=== PATIENT | male | born 1950 | race Caucasian/White ===

== ENCOUNTER 2018-04-05 06:00 | Day surgery (SDC) | payer MEDICARE, MEDICAID ==
[~2018-04-05] VITALS: Ht 182.9 cm; Wt 126.5 kg
[~2018-04-05 06:00] MED LIST: ATORVASTATIN CA20 MG PO; LISINOPRIL-HCT1 EAC1 PO; TYLENOL WITH C1 EACH PO
[2018-04-05] MEDS ORDERED: NAPROSYN500 MG PO (06:26)
[2018-04-05] MEDS ORDERED: HEARTBURN RELIE75 M1 PO (06:26)
[2018-04-05] MEDS ORDERED: CORTISONE ACETA25 MG PO (06:28)
[2018-04-05] MEDS ORDERED: ASPIR 8181 MG PO (06:29)
--- NOTE | 2018-04-05 08:22 | NUR ---
04/05/18 0822 Siobhan Pierce 0818-PATIENT ARRIVED TO PACU ON 3L NC O2 SAT 95% PATIENT REACTIVE TO VOICE OPENING EYES DENIES PAIN OR NAUSEA. VERY DROWSY BACK TO SLEEP. RR EVEN.
--- NOTE | 2018-04-05 11:23 | OR ---
[facility] [address], [place] [address] Signed DATE OF OPERATION: 04/05/2018 SURGEON: Dax Oliveira MD COLONOSCOPY REPORT PREOPERATIVE DIAGNOSIS: Personal history of colonic polyps in 2007. POSTOPERATIVE DIAGNOSIS: Moderate sigmoid diverticulosis. PROCEDURE: Colonoscopy without biopsy. ESTIMATED BLOOD LOSS: None. INDICATIONS: Mane is a 68-year-old gentleman, who was asked to see me for followup colonoscopy. He explained that he underwent a colonoscopy with polyps removed in 2007 while working in [place]. The time got away from him before he noted he was at another job and when he reestablished with a new primary care provider he was asked to come see me for his followup colonoscopy. He said there is no family history of colon cancer or polyps. He has no lower GI complaints. I met with Mane in the office and I gave him a [employer] brochure on endoscopy and we reviewed the idea that colonic polyps can grow and become cancers in that regard we need to see him every 5 years. We also had reviewed the written instructions of the bowel prep. We also reviewed the need for IV conscious sedation. He understands there is risk to the procedure including, but not limited to gas bloating, crampy abdominal pain, bleeding, perforation, requiring surgery, and missed diagnosis. He had expressed understanding and wished to proceed. PROCEDURE NOTE: Mane was taken into our endoscopy suite and placed in the left lateral decubitus position. He was given IV sedation with 150 mcg of fentanyl and 8 mg of Versed. Also, because of his daily need for oral cortisone, we gave him 60 mg of Solu-Medrol IV x1 before the procedure started. He understands he will go ahead and take his cortisone later today after he gets home. After this, a digital rectal exam was performed and this was unremarkable. The adult colonoscope was introduced and advanced all around into the cecum under direct visualization of camera without difficulty. He had a couple Electronically Signed By: DAX OLIVEIRA MD 04/05/18 1123 PATIENT NAME: MANE BRIGGS OPERATIVE REPORT DATE OF : 46 REPORT #: [id number] PHYSICIAN: DAX OLIVEIRA MD PCP: COURTNEY DALY MD REPORT IS CONFIDENTIAL AND NOT TO BE RELEASED WITHOUT AUTHORIZATION [facility] [address], [place] [address] Signed areas of pasty particulate stool matter that I could irrigate and suction out completely. Nevertheless, we found no pathology in the colon except for the diverticulosis. They are moderate in size, moderate in number, and scattered about in the sigmoid colon. The rectum was unremarkable. Upon retroflexion of the scope, there was no additional pathology noted above the anal canal. After this, the gas was suctioned out and the colonoscope removed. Mane tolerated the procedure quite well. RECOMMENDATIONS: I will see Mane in 5 years for repeat colonoscopy due to his personal history of colonic polyps. Dax Oliveira MD ALB/MODL /[id number] cc: MD Dax Bello MD Copies: COURTNEY DALY MD, ANDREW L MD ~ Electronically Signed By: DAX OLIVEIRA MD 04/05/18 1123 PATIENT NAME: MANE BRIGGS OPERATIVE REPORT DATE OF : 46 REPORT #: [id number] PHYSICIAN: DAX OLIVEIRA MD PCP: COURTNEY DALY MD REPORT IS CONFIDENTIAL AND NOT TO BE RELEASED WITHOUT AUTHORIZATION
== END 2018-04-05 09:12 | disposition home or self-care (01) ==
LOC: OPS 06:00 → DS 06:00 → OPS 06:45
PROVIDERS: Colon & Rectal Surgery
PROC: 0DJD8ZZ Inspection of Lower Intestinal Tract, Via Natural or Artificial Opening Endoscopic (ICD-10-PCS; principal; 2018-04-05 06:45)
DX: Z12.11 Encounter for screening for malignant neoplasm of colon (principal); K57.30 Diverticulosis of large intestine without perforation or abscess without bleeding; E78.5 Hyperlipidemia, unspecified; M19.90 Unspecified osteoarthritis, unspecified site; I10 Essential (primary) hypertension; Z86.010 Personal history of colon polyps; Z86.73 Personal history of transient ischemic attack (TIA), and cerebral infarction without residual deficits; Z98.890 Other specified postprocedural states; Z79.82 Long term (current) use of aspirin; Z79.899 Other long term (current) drug therapy; Z79.1 Long term (current) use of non-steroidal anti-inflammatories (NSAID)
CPT/HCPCS: 99153; G0500; J2250; J3010; J7120

== ENCOUNTER 2020-04-05 13:27 | Observation (INO) | payer MEDICARE, MEDICAID ==
[~2020-04-05] VITALS: Ht 182.9 cm; Wt 126.5 kg
[~2020-04-05 13:27] MED LIST changes: +ASPIR 8181 MG PO; +CORTISONE ACETA25 MG PO; +HEARTBURN RELIE75 M1 PO; +NAPROSYN500 MG PO
--- NOTE | 2020-04-06 07:52 | EKG ---
[facility] [address] [facility] [place] [address] Signed Normal sinus rhythm with sinus arrhythmia Prolonged QT Abnormal ECG No previous ECGs available Confirmed by LORI MARC MD ([id number]) on 04/06/2020 7:52:33 AM Electronically Signed By: LORI MARC MD 04/06/20 0752 PATIENT NAME: MANE BRIGGS NIKHIL Electrocardiogram DATE OF : 46 PHYSICIAN: LORI MARC MD REPORT #: [id number] REPORT IS CONFIDENTIAL AND NOT TO BE RELEASED WITHOUT AUTHORIZATION
[2020-04-06] MEDS ORDERED: DULOXETINE HCL20 MG PO (09:33)
[2020-04-06] MEDS ORDERED: DICLOFENAC SOD100 G1 TOP (10:30)
[2020-04-08] MEDS ORDERED: ASPIRIN325 MG PO (09:47)
== END 2020-04-08 10:55 | disposition home or self-care (01) ==
LOC: ED 13:27 → MS 13:28
PROVIDERS: ADMIT Internal Medicine
DX: G45.9 Transient cerebral ischemic attack, unspecified (principal); I10 Essential (primary) hypertension; Z79.899 Other long term (current) drug therapy; Z79.82 Long term (current) use of aspirin; W18.30XA Fall on same level, unspecified, initial encounter; Y92.009 Unspecified place in unspecified non-institutional (private) residence as the place of occurrence of the external cause
CPT/HCPCS: 36415; 70450; 70496; 70498; 70551; 71045; 80048; 80053; 80061; 81001; 83735; 85025; 85610; 85730; 93005; 93010; 96105; 96361; 96372; 96375; 97112; 97116; 97163; 97165; 99285-25; C9803; G0378; J1650; J2405; J2550; J7030; Q9967; U0002

== ENCOUNTER 2023-06-23 13:03 | Emergency (ER) | payer MEDICARE, OTHER ==
[~2023-06-23] VITALS: Ht 185.4 cm; Wt 119.9 kg
--- OUTSIDE RECORDS SUMMARY | ~2023-06-23 | XMS | Continuity of Care Document ---
Demographics + + + | Address | [address] | | | [place] [address] | + + + | Preferred Language | Unknown | + + + | Marital Status | Never | + + + | Mormonism Affiliation | Unknown | + + + | Race | White | + + + | Ethnic Group | Unknown | + + + Author + + + | Author | [facility] | + + + | Organization | [facility] | + + + | Address | [address] | | | [place] [address] | + + + | Phone | | + + + Care Team Providers + + + + | Care Hairspring Fabrication Supervisor Name | Role | Phone | + + + + Unavailable | Unavailable | + + + + Allergies and Intolerances + + + + + + | date | description | facility | reaction | severity | + + + + + + | (no date) | No Known Drug | [facility] | (no reaction) | (no severity) | | | Allergies | | | | + + + + + + Encounters No information. Functional Status No information. Immunizations No information. Medications No information. Problems + + + + | date | description | facility | + + + + | 2023-03-29 09:35 | TRANSIENT CEREBRAL | [facility] | | | ISCHEMIC ATTACK, | | | | UNSPECIFIED | | + + + + | 2023-03-29 09:35 | SEBACEOUS CYST | [facility] | + + + + | 2023-04-13 19:53 | TRANSIENT CEREBRAL | [facility] | | | ISCHEMIC ATTACK, UNSP | | + + + + | 2023-04-13 19:53 | TRANSIENT CEREBRAL | [facility] | | | ISCHEMIC ATTACK, | | | | UNSPECIFIED | | + + + + | 2023-04-13 20:30 | TRANSIENT CEREBRAL | [facility] | | | ISCHEMIC ATTACK, UNSP | | + + + + Procedures No information. Results/Labs No information. Social History No information. Vital Signs No information."
--- OUTSIDE RECORDS SUMMARY | ~2023-06-23 | XMS | Continuity of Care Document ---
Demographics + + + | Address | [address] | | | [place] [address] | + + + | Preferred Language | Unknown | + + + | Marital Status | Never | + + + | Caodaism Affiliation | Unknown | + + + | Race | White | + + + | Ethnic Group | Unknown | + + + Author + + + | Author | [facility] | + + + | Organization | [facility] | + + + | Address | [address] | | | [place] [address] | + + + | Phone | | + + + Care Team Providers + + + + | Care Spot Checker Name | Role | Phone | + [...]
[~2023-06-23 13:03] MED LIST changes: +ASPIRIN325 MG PO; +DICLOFENAC SOD100 G1 TOP; +DULOXETINE HCL20 MG PO
[2023-06-23 13:16] LABS: BASOPHILS 0.4 % (0-2); EOSINOPHILS 1.1 % (0-6); HEMATOCRIT 40.9 % (35.0-50.0); HEMOGLOBIN 13.6 g/dL (12.0-18.0); LYMPHOCYTES 17.5 % (24-44); MCH 32.9 (27-36); MCHC 33.3 g/dl (30-36); MCV 98.6 fl (81-99); MONOCYTES 9.1 % (0-12); NEUTROPHILS 71.9 % (39-80); PLATELET COUNT 222 K/uL (140-440); RBC 4.15 M/ul (4.3-5.7); RDW 13.7 (10.5-15.0)
[2023-06-23 13:27] LABS: ALBUMIN 3.9 g/dL (3.4-5.0); ALBUMIN/GLOBULIN RATIO 1.18 (1.1-2.4); ANION GAP 13.8 (7-21); BILIRUBIN, TOTAL 0.5 ng/dL (0.2-1.0); BUN/CREATININE RATIO 17.54 (6.0-28.6); CALCIUM 9.4 mg/dL (8.5-10.1); CREATININE, SERUM 1.14 mg/dL (0.70-1.30); POTASSIUM 3.8 mmol/L (3.5-5.1); PROTEIN, TOTAL 7.2 g/dL (6.4-8.2)
[2023-06-23 14:16] LABS: INR 1.01 (0.80-1.30); PROTIME 12.9 Sec (11.2-14.2)
[2023-06-23 14:20] LABS: PARTIAL THROMBOPLASTIN TIME 27.7 Sec (22.9-41.3)
[2023-06-23 14:31] LABS: INFLUENZA B NAA NEGATIVE (NEGATIVE); RESPIRATORY SYNCYTIAL VIR NAA NEGATIVE (NEGATIVE)
[2023-06-23] MEDS ORDERED: PLAVIX75 MG PO (16:18)
[2023-06-23 16:34] VITALS: BP 166/98
--- NOTE | 2023-06-24 12:12 | EKG ---
[facility] [address] [facility] [place] [address] Signed Sinus rhythm with occasional premature ventricular complexes Left axis deviation Abnormal ECG When compared with ECG of 05-APR-2020 13:58, premature ventricular complexes are now present Nonspecific T wave abnormality now evident in Lateral leads Confirmed by ANICETO ZAMORA MD ([id number]) on 06/24/2023 12:12:40 PM Electronically Signed By: ANICETO ZAMORA 06/24/23 1212 PATIENT NAME: MANE BRIGGS Electrocardiogram DATE OF : 46 PHYSICIAN: ANICETO ZAMORA REPORT #: [id number] REPORT IS CONFIDENTIAL AND NOT TO BE RELEASED WITHOUT AUTHORIZATION
== END 2023-06-23 16:35 | disposition home or self-care (01) ==
LOC: ED 13:03
PROVIDERS: Emergency Medicine
DX: G45.9 Transient cerebral ischemic attack, unspecified (principal); I77.71 Dissection of carotid artery; Z79.899 Other long term (current) drug therapy; Z79.82 Long term (current) use of aspirin; Z20.822 Contact with and (suspected) exposure to COVID-19
CPT/HCPCS: 36415; 70450; 70496; 70498; 70551; 71045; 80053; 85025; 85610; 85730; 87502; 93005; 93010; 99285-25; C9803; Q9967; U0002

== ENCOUNTER 2025-07-13 10:20 | Emergency (ER) | payer MEDICARE, OTHER ==
[~2025-07-13] VITALS: Ht 185.4 cm; Wt 100.0 kg
[~2025-07-13 10:20] MED LIST changes: +PLAVIX75 MG PO
[2025-07-13 10:42] LABS: BASOPHILS 0.4 % (0.2-1.2); EOSINOPHILS 0.7 % (0.8-7.0); LYMPHOCYTES 14.4 % (21.8-53.1); MCH 33.2 PG (25.7-32.2); MCHC 32.5 g/dL (32.3-36.5); MCV 102.3 fL (79.0-92.2); MONOCYTES 6.9 % (5.3-12.2); NEUTROPHILS 77.2 % (34.0-67.9); RBC 3.49 M/uL (4.63-6.08)
[2025-07-13 10:52] LABS: INR 1.05 (0.80-1.30); PROTIME 13.0 Sec (11.2-14.2)
[2025-07-13 10:58] LABS: ALT (SGPT) 19.0 U/L (14-59); AST (SGOT) 15.0 U/L (15-37); GLOMERULAR FILTRATION RATE,EST 81.0 mL/min (>60); PROTEIN, TOTAL 6.3 g/dL (6.4-8.2); UREA NITROGEN 26.0 mg/dL (7-18)
[2025-07-13 11:17] LABS: ABO A; ANTIBODY SCREEN NEGATIVE; RH POSITIVE
[2025-07-13 11:20] LABS: CORONAVIRUS COVID-19 AG NEGATIVE (NEGATIVE)
[2025-07-13 12:26] LABS: BLOOD/HGB, URINE TRACE-I (Negative); KETONE, URINE SMALL (Negative); LEUK ESTERASE, URINE NEGATIVE (negative); NITRITE, URINE NEGATIVE (negative)
[2025-07-13 12:31] LABS: BACTERIA, URINE RARE /hpf (negative); CASTS, URINE NONE SEEN \\lpf; CRYSTALS, URINE NONE SEEN (0-1+); EPITHELIAL CELLS, URINE SQUAMOUS 1+ /lpf (0-1+); REFLEX CULTURE, URINE Yes (No)
[2025-07-13] MEDS ORDERED: PANTOPRAZOLE SODIUM 40 MG/10 ML VIAL IV ONE (14:45)
[2025-07-13] MEDS ORDERED: LACTATED RINGER'S 1,000 ML IV SCH (15:15)
[2025-07-13 17:25] VITALS: BP 139/87
[2025-07-14] MEDS ORDERED: PANTOPRAZOLE SODIUM 40 MG/10 ML VIAL IV SCH (09:00)
[2025-07-14] MEDS ORDERED: PHARMACY RENAL DOSE ADJUSTMENT 1 DOSE MISC PO SCH (12:00)
== END 2025-07-13 17:25 | disposition left against medical advice (07) ==
LOC: ED 10:20
PROVIDERS: Emergency Medicine
DX: K92.1 Melena (principal); K57.30 Diverticulosis of large intestine without perforation or abscess without bleeding; Z79.82 Long term (current) use of aspirin; Z79.02 Long term (current) use of antithrombotics/antiplatelets; Z79.899 Other long term (current) drug therapy
CPT/HCPCS: 36415; 74177; 80048; 80053; 81001; 83690; 83735; 85025; 85610; 86850; 86900; 86901; 87077; 87088; 87186; 96374; 99285-25; J2470; J7121; Q9967